=== PATIENT | female | born 1940 | race Caucasian/White ===

== ENCOUNTER → 2019-05-10 | Outpatient (CLI) | payer MEDICARE ==
[~2019-05-10] MED LIST: LIDOCAINE HCL 2% JELLY 5 ML ONE
[2019-05-10 16:03] VITALS: BP 127/63
== END | disposition home or self-care (01) ==
LOC: WHH 09:45
PROVIDERS: ATTEND Surgery
DX: I83.012 Varicose veins of right lower extremity with ulcer of calf (principal); L97.212 Non-pressure chronic ulcer of right calf with fat layer exposed; I83.013 Varicose veins of right lower extremity with ulcer of ankle; L97.312 Non-pressure chronic ulcer of right ankle with fat layer exposed; I10 Essential (primary) hypertension; I87.2 Venous insufficiency (chronic) (peripheral); E07.9 Disorder of thyroid, unspecified
CPT/HCPCS: 11042; 11045; A4450; A6197; A6452; G0463

== ENCOUNTER → 2019-05-14 | Outpatient (CLI) | payer MEDICARE | END | disposition home or self-care (01) | LOC: WHH 14:45 | PROVIDERS: ATTEND Surgery | DX: I83.012 Varicose veins of right lower extremity with ulcer of calf (principal); L97.211 Non-pressure chronic ulcer of right calf limited to breakdown of skin; I87.2 Venous insufficiency (chronic) (peripheral); E07.9 Disorder of thyroid, unspecified | CPT/HCPCS: 93923; G0463 ==

== ENCOUNTER → 2019-05-17 | Outpatient (CLI) | payer MEDICARE ==
[~2019-05-17] MED LIST changes: -LIDOCAINE HCL 2% JELLY 5 ML ONE; +LIDOCAINE/PRILOCAINE CREAM 5GM TUBE TP ONE
[2019-05-17 15:32] VITALS: BP 131/62
== END | disposition home or self-care (01) ==
LOC: WHH 10:30
PROVIDERS: ATTEND Surgery
DX: I83.013 Varicose veins of right lower extremity with ulcer of ankle (principal); L97.312 Non-pressure chronic ulcer of right ankle with fat layer exposed; I83.012 Varicose veins of right lower extremity with ulcer of calf; L97.212 Non-pressure chronic ulcer of right calf with fat layer exposed; E07.9 Disorder of thyroid, unspecified; I87.2 Venous insufficiency (chronic) (peripheral); I10 Essential (primary) hypertension; Z90.11 Acquired absence of right breast and nipple; Z90.89 Acquired absence of other organs
CPT/HCPCS: 11042; 11045; A6452; J3490

== ENCOUNTER → 2019-05-29 | Outpatient (CLI) | payer MEDICARE ==
[2019-05-29 12:46] VITALS: BP 138/67
== END | disposition home or self-care (01) ==
LOC: WHH 10:00
PROVIDERS: ATTEND Surgery
DX: I83.013 Varicose veins of right lower extremity with ulcer of ankle (principal); L97.312 Non-pressure chronic ulcer of right ankle with fat layer exposed; I83.012 Varicose veins of right lower extremity with ulcer of calf; L97.212 Non-pressure chronic ulcer of right calf with fat layer exposed; E07.9 Disorder of thyroid, unspecified; I87.2 Venous insufficiency (chronic) (peripheral); I10 Essential (primary) hypertension; Z90.11 Acquired absence of right breast and nipple; Z90.89 Acquired absence of other organs
CPT/HCPCS: 11042; 11045

== ENCOUNTER → 2019-06-12 | Outpatient (CLI) | payer MEDICARE ==
[~2019-06-12] MED LIST changes: +LIDOCAINE HCL 2% JELLY 5 ML ONE; -LIDOCAINE/PRILOCAINE CREAM 5GM TUBE TP ONE
[2019-06-12 12:11] VITALS: BP 142/73
== END | disposition home or self-care (01) ==
LOC: WHH 10:00
PROVIDERS: ATTEND Surgery
DX: I83.013 Varicose veins of right lower extremity with ulcer of ankle (principal); L97.312 Non-pressure chronic ulcer of right ankle with fat layer exposed; I83.012 Varicose veins of right lower extremity with ulcer of calf; L97.212 Non-pressure chronic ulcer of right calf with fat layer exposed; I10 Essential (primary) hypertension; I87.2 Venous insufficiency (chronic) (peripheral); E07.9 Disorder of thyroid, unspecified; Z90.89 Acquired absence of other organs; Z90.11 Acquired absence of right breast and nipple
CPT/HCPCS: 11042; 11045; A6021

== ENCOUNTER → 2019-06-18 | Outpatient (CLI) | payer MEDICARE | END | disposition home or self-care (01) | LOC: SHCH 13:00 | PROVIDERS: ATTEND Internal Medicine Cardiovascular Disease | DX: I73.9 Peripheral vascular disease, unspecified (principal) | CPT/HCPCS: 93925 ==

== ENCOUNTER → 2019-06-19 | Outpatient (CLI) | payer MEDICARE ==
[2019-06-19 12:06] VITALS: BP 123/64
== END | disposition home or self-care (01) ==
LOC: WHH 10:00
PROVIDERS: ATTEND Surgery
DX: I83.013 Varicose veins of right lower extremity with ulcer of ankle (principal); L97.312 Non-pressure chronic ulcer of right ankle with fat layer exposed; I83.012 Varicose veins of right lower extremity with ulcer of calf; L97.212 Non-pressure chronic ulcer of right calf with fat layer exposed; I87.2 Venous insufficiency (chronic) (peripheral); I10 Essential (primary) hypertension; I73.9 Peripheral vascular disease, unspecified; E07.9 Disorder of thyroid, unspecified; Z90.11 Acquired absence of right breast and nipple; Z90.89 Acquired absence of other organs
CPT/HCPCS: 11042; 11045; A6021; A6197

== ENCOUNTER → 2019-06-26 | Outpatient (CLI) | payer MEDICARE ==
[~2019-06-26] MED LIST changes: -LIDOCAINE HCL 2% JELLY 5 ML ONE; +LIDOCAINE HCL 4% LTA SOL 4 ML VIAL ONE
[2019-06-26 11:04] VITALS: BP 123/58
== END | disposition home or self-care (01) ==
LOC: WHH 09:55
PROVIDERS: ATTEND Surgery
DX: I83.013 Varicose veins of right lower extremity with ulcer of ankle (principal); L97.312 Non-pressure chronic ulcer of right ankle with fat layer exposed; I83.012 Varicose veins of right lower extremity with ulcer of calf; L97.212 Non-pressure chronic ulcer of right calf with fat layer exposed; I10 Essential (primary) hypertension; I87.2 Venous insufficiency (chronic) (peripheral); E07.9 Disorder of thyroid, unspecified; I73.9 Peripheral vascular disease, unspecified; Z90.89 Acquired absence of other organs; Z90.11 Acquired absence of right breast and nipple
CPT/HCPCS: 11042; 11045; A6021; A6197

== ENCOUNTER → 2019-07-03 | Outpatient (CLI) | payer MEDICARE ==
[~2019-07-03] MED LIST changes: +LIDOCAINE HCL 2% JELLY 5 ML ONE; -LIDOCAINE HCL 4% LTA SOL 4 ML VIAL ONE
[2019-07-03 11:38] VITALS: BP 145/70
== END | disposition home or self-care (01) ==
LOC: WHH 10:00
PROVIDERS: ATTEND Surgery
DX: I83.013 Varicose veins of right lower extremity with ulcer of ankle (principal); L97.312 Non-pressure chronic ulcer of right ankle with fat layer exposed; I83.012 Varicose veins of right lower extremity with ulcer of calf; L97.212 Non-pressure chronic ulcer of right calf with fat layer exposed; I10 Essential (primary) hypertension; I87.2 Venous insufficiency (chronic) (peripheral); I73.9 Peripheral vascular disease, unspecified; E07.9 Disorder of thyroid, unspecified; Z90.11 Acquired absence of right breast and nipple; Z90.89 Acquired absence of other organs
CPT/HCPCS: 11042; 11045; A6021; A6197

== ENCOUNTER 2019-07-12 10:00 | Outpatient (CLI) | payer MEDICARE ==
[2019-07-12] MEDS ORDERED: LIDOCAINE HCL 2% JELLY 5 ML ONE (12:00)
[2019-07-12 13:22] VITALS: BP 159/73
== END 2019-07-12 14:32 ==
LOC: WHH 10:00
PROVIDERS: ATTEND Surgery
DX: I83.013 Varicose veins of right lower extremity with ulcer of ankle (principal); L97.312 Non-pressure chronic ulcer of right ankle with fat layer exposed; I83.012 Varicose veins of right lower extremity with ulcer of calf; L97.212 Non-pressure chronic ulcer of right calf with fat layer exposed; E07.9 Disorder of thyroid, unspecified; I10 Essential (primary) hypertension; I87.2 Venous insufficiency (chronic) (peripheral); Z90.89 Acquired absence of other organs; Z90.11 Acquired absence of right breast and nipple
CPT/HCPCS: 11042; 11045; A6021 ×2; A6197